=== PATIENT | male | born 1980 | race Two or more races ===

== ENCOUNTER 2019-01-15 20:29 | Emergency (ER) | payer OTHER ==
[~2019-01-15] VITALS: Ht 185.4 cm; Wt 86.2 kg
[~2019-01-15 20:29] MED LIST: BACTROBAN22 GM TP; CEFADROXIL500 MG PO; PROTONIX20 MG PO
[2019-01-15] MEDS ORDERED: CANNABIS (20:37)
== END 2019-01-15 21:15 | disposition home or self-care (01) ==
LOC: ER 20:29
DX: S91.322A Laceration with foreign body, left foot, initial encounter (principal); W25.XXXA Contact with sharp glass, initial encounter; Y93.89 Activity, other specified; Y92.89 Other specified places as the place of occurrence of the external cause; Y99.8 Other external cause status

== ENCOUNTER 2019-01-25 19:05 | Emergency (ER) | payer OTHER ==
[~2019-01-25] VITALS: Ht 185.4 cm; Wt 86.2 kg
[~2019-01-25 19:05] MED LIST changes: +CANNABIS
== END 2019-01-25 20:27 | disposition home or self-care (01) ==
LOC: ER 19:05
DX: Z48.02 Encounter for removal of sutures (principal)